=== PATIENT | male | born 1965 | race Caucasian/White ===

== ENCOUNTER 2022-01-13 04:53 | Day surgery (SDC) | payer BC ==
[2022-01-10 08:35] VITALS: BMI 30.5
[2022-01-13 11:42] VITALS: TEMP 98
[2022-01-13 15:21] VITALS: BP 115/38; PULSE 74
== END 2022-01-13 12:24 | disposition home or self-care (01) ==
LOC: JASU-ENDO 04:53
PROVIDERS: ATTEND Internal Medicine Gastroenterology
PROC: 0DBP8ZX Excision of Rectum, Via Natural or Artificial Opening Endoscopic, Diagnostic (ICD-10-PCS; principal; 2022-01-13 10:00)
DX: Z12.11 Encounter for screening for malignant neoplasm of colon (principal); Z86.010 Personal history of colon polyps; K62.1 Rectal polyp; K64.8 Other hemorrhoids
CPT/HCPCS: 88305-TC; 88342-TC